=== PATIENT | female | born 1955 ===

== ENCOUNTER 2020-02-15 08:58 | Day surgery (SDC) | payer MEDICARE ==
[~2020-02-15] VITALS: Ht 162.6 cm; Wt 62.6 kg
[2020-02-15] MEDS ORDERED: ASPIRIN E.C. 8181 MG PO (09:18)
[2020-02-15] MEDS ORDERED: BUSPAR DIVIDOSE15 MG PO (09:19)
[2020-02-15] MEDS ORDERED: LOPRESSOR 550 MG/TAB PO (09:21)
[2020-02-15] MEDS ORDERED: XANAX2 MG PO (09:22)
[2020-02-15] MEDS ORDERED: ARICEPT 5MG PO (09:23)
[2020-02-15] MEDS ORDERED: ZOCOR 40MG40 MG PO (09:23)
[2020-02-15] MEDS ORDERED: ULTRAM 50MG TAB50 MG PO (09:24)
[2020-02-15 10:00] VITALS: BP 133/75; PULSE 67; TEMP 98.7
[2020-02-15] MEDS ORDERED: NORCO 325 MG-51 TAB PO (11:37)
[2020-02-15] MEDS ORDERED: PYRIDIUM 100MG100 MG PO (11:37)
[2020-02-15 12:45] VITALS: BP 146/73; PULSE 72; TEMP 98
--- NOTE | 2020-02-15 12:46 | NUR ---
PATIENT TRANSPORTED PER CART FROM PACU ACCOMPANIED BY PACU STAFF. MONITORS REAPPLIED. VSS ON ROOM AIR. PATIENT DENIES DISCOMFORT AND NAUSEA. PATIENT REQUESTED TO GO TO BATHROOM. PATIENT AMBULATED WITH 1 ASSIST. STEADY GAIT. PATIENT VOIDED WITHOUT PROBLEMS. PATIENT GIVEN ORANGE JUICE AND WARM MUFFIN.
[2020-02-15 13:00] VITALS: BP 142/73; PULSE 77
--- NOTE | 2020-02-15 13:00 | NUR ---
VSS ON ROOM AIR. PATIENT TOLERATES MUFFIN AND JUICE WITHOUT NAUSEA. PATIENT ALERT AND TALKING. DAUGHTER AT BEDSIDE.
[2020-02-15 13:15] VITALS: BP 135/67; PULSE 77
--- NOTE | 2020-02-15 13:15 | NUR ---
VSS ON ROOM AIR. PATIENT SITTING UP, ALERT AND TALKING WITH DAUGHTER. DENIES DISCOMFORT AND NAUSEA. WANTED TO KNOW WHEN SHE CAN GO HOME. PATIENT REASSURED.
[2020-02-15 13:30] VITALS: BP 133/64; PULSE 74
--- NOTE | 2020-02-15 13:30 | NUR ---
VSS ON ROOM AIR. PATIENT DENIES DISCOMFORT AND NAUSEA. 1340 IV SITE DC'D WITH CATHETER TIP INTACT. PRESSURE AND BANDAGE APPLIED. DISCHARGE INSTRUCTIONS GIVEN VERBAL AND DISCHARGE PACKET PROVIDED. QUESTIONS ANSWERED AND PATIENT AND DAUGHTER VOICED UNDERSTANDING. PATIENT CHANGES INTO STREET CLOTHES. 1350 PATIENT DISCHARGED PER WHEEL CHAIR ACCOMPANIED BY AMBULATORY STAFF. PATIENT AMBULATED WITH STEADY GAIT FROM WHEEL CHAIR TO CAR. DAUGHTER DRIVING CAR.
== END 2020-02-15 13:45 | disposition home or self-care (01) ==
LOC: SDCO 08:58
DX: N20.1 Calculus of ureter (principal); F41.9 Anxiety disorder, unspecified; E78.00 Pure hypercholesterolemia, unspecified; E78.5 Hyperlipidemia, unspecified; Z87.440 Personal history of urinary (tract) infections; Z90.710 Acquired absence of both cervix and uterus; Z79.82 Long term (current) use of aspirin; Z79.52 Long term (current) use of systemic steroids; Z88.0 Allergy status to penicillin; Z88.8 Allergy status to other drugs, medicaments and biological substances; Z87.891 Personal history of nicotine dependence; F03.90 Unspecified dementia, unspecified severity, without behavioral disturbance, psychotic disturbance, mood disturbance, and anxiety; G89.29 Other chronic pain
CPT/HCPCS: C1769; C2617; J0690; J1100; J2405; J2704; J3010; J7120; Q9967